=== PATIENT | male | born 1980 | race African-American/Black ===

== ENCOUNTER 2019-05-30 03:12 | Emergency (ER) | payer SELFPAY ==
--- NOTE | 2019-05-30 06:31 | ER Document Report ---
ED GI/ - General Chief Complaint: Abdominal Pain Stated Complaint: ABDOMINAL PAIN/BLADDER PAIN Time Seen by Provider: 05/30/19 06:15 Information source: Patient TRAVEL OUTSIDE OF THE U[place]. IN LAST 30 DAYS: No - HPI Notes: 05/30/19 06:31 Patient complains of lower abdominal pain and distention for the last couple days after Blanca catheter removed. Patient was seen and operated on up in [facility] approximately 4 days ago for inguinal hernia repair. He insisted on leaving there approximately 3 days ago and had a Blanca catheter removed at that time. Patient was seen here approximately 2 days ago and had a work-up at that time which was negative including a negative CT scan of the abdomen. Subsequently patient has had increased urinary distention in decreased ability to urinate. Patient has no other complaints at this time. No nausea or vomiting or diarrhea. No chest pain or shortness of breath. Patient is here with a woman. No rashes. - Related Data Allergies/Adverse Reactions: No Known Allergies Allergy (Unverified 05/30/19 05:10) Past Medical History - Social History Smoking Status: Current Every Day Smoker Frequency of alcohol use: Occasional Family History: Reviewed & Not Pertinent Patient has suicidal ideation: No Patient has homicidal ideation: No Past Surgical History: Reports: Hx Herniorrhaphy - Left indirect inguinal hernia - Immunizations Immunizations up to date: Yes Hx Diphtheria, Pertussis, Tetanus Vaccination: Yes Review of Systems - Review of Systems Constitutional: denies: Chills, Fever Cardiovascular: denies: Chest pain, Heart racing -: Yes All other systems reviewed and negative Physical Exam - Vital signs Vitals: Temp Pulse BP Pulse Ox 98.0 F 93 164/102 H 99 05/30/19 05:05 05/30/19 05:05 05/30/19 05:05 05/30/19 05:05 Interpretation: Normal - General General appearance: Appears well, Alert - HEENT Head: Normocephalic, Atraumatic Eyes: Normal Pupils: PERRL - Respiratory Respiratory status: No respiratory distress Chest status: Nontender Breath sounds: Normal Chest palpation: Normal - Cardiovascular Rhythm: Regular Heart sounds: Normal auscultation Murmur: No - Abdominal Inspection: Healed incision Distension: Distended Bowel sounds: Normal Tenderness: Tender. No: Guarding, Rebound Notes: Enlarged bladder. No CVA tenderness. No rebound. No guarding. - Back Back: Normal, Nontender - Extremities General upper extremity: Normal inspection, Nontender, Normal color, Normal ROM, Normal temperature General lower extremity: Normal inspection, Nontender, Normal color, Normal ROM, Normal temperature, Normal weight bearing. No: Stew's sign - Neurological Neuro grossly intact: Yes Cognition: Normal Orientation: AAOx4 [place] Coma Scale Eye Opening: Spontaneous Melinda Coma Scale Verbal: Oriented Melinda Coma Scale Motor: Obeys Commands [place] Coma Scale Total: 15 Speech: Normal Motor strength normal: LUE, RUE, LLE, RLE Sensory: Normal - Psychological Associated symptoms: Normal affect, Normal mood - Skin Skin Temperature: Warm Skin Moisture: Dry Skin Color: Normal Course - Re-evaluation Re-evalutation: 05/30/19 06:38 Blanca catheter placed. 05/30/19 10:06 Patient has had approximately 250 cc out to Blanca without improvement of symptoms. Labs reviewed. CT abdomen pelvis per radiology shows ileus, no acute disease. Patient is declining admission at this time. He is being rude to staff. He states that this is nothing like [place] which is where he is from. He is signing out AGAINST MEDICAL ADVICE. I believe he has capacity to do so. I have told him to come back at once if worse or new symptoms or if he changes his mind and agrees to admission. He tells me he wants to go out and eat pizza and get a soda. I encouraged him not to do this at this time. Patient is stable. - Vital Signs Vital signs: Temp Pulse Resp BP Pulse Ox 98.2 F 88 18 138/92 H 99 05/30/19 08:00 05/30/19 08:00 05/30/19 08:00 05/30/19 08:00 05/30/19 08:00 - Laboratory Result Diagrams: 05/30/19 08:05 05/30/19 08:05 Laboratory results interpreted by me: 05/30/19 05/30/19 07:25 08:05 MCH 26.6 L RDW 14.5 H Urine Protein 30 H Urine Ketones TRACE H Urine Blood SMALL H Urine Urobilinogen 4.0 H Discharge - Discharge Clinical Impression: Non-compliance Abdominal pain Qualifiers: Abdominal location: unspecified location Qualified Code(s): R10.9 - Unspecified abdominal pain Hypertension Qualifiers: Hypertension type: unspecified Qualified Code(s): I10 - Essential (primary) hypertension Disposition: AGAINST MEDICAL ADVICE
--- NOTE | 2019-05-30 07:39 | RADIOLOGY REPORT (SQ) ---
EXAM DESCRIPTION: X-ray abdomen 1 view CLINICAL DATA: 39-year-old male with abdominal pain. History of hernia repair four days ago and no bowel movement since with difficulty urinating TECHNICAL DATA: A single AP supine x-ray of the abdomen was performed on 05/30/2019 at 5:55 AM. Comparison: CT abdomen and pelvis performed on 05/28/2019. FINDINGS: The bowel gas pattern is nonspecific and nonobstructive. There is mild to moderate fecal residue scattered throughout the colon. There are postsurgical changes consistent with hernia repair projecting over the left lower quadrant. No pathologic abdominal or pelvic calcifications are identified. No abnormal air collections are identified. No focal soft tissue abnormalities are seen. No acute osseous abnormalities are identified. There is a hypoplastic right 12th rib. IMPRESSION: Nonspecific nonobstructive bowel gas pattern. There is mild to moderate fecal residue scattered throughout the colon. Postsurgical changes consistent with hernia repair in the left lower quadrant.
[2019-05-30 07:58] LABS: URINE AMPHETAMINES SCREEN NEGATIVE; URINE BARBITURATES SCREEN NEGATIVE; URINE BENZODIAZEPINES SCREEN NEGATIVE; URINE COCAINE SCREEN NEGATIVE; URINE MARIJUANA (THC) SCREEN NEGATIVE; URINE METHADONE SCREEN NEGATIVE; URINE PHENCYCLIDINE SCREEN NEGATIVE
[2019-05-30 08:16] LABS: APPEARANCE,URINE CLEAR; BILIRUBIN,URINE NEGATIVE (NEGATIVE); COLOR,URINE YELLOW; GLUCOSE, URINE NEGATIVE (NEGATIVE); KETONES,URINE TRACE mg/dL (NEGATIVE); LEUKOCYTE ESTERASE,URINE NEGATIVE (NEGATIVE); NITRITE,URINE NEGATIVE (NEGATIVE); PROTEIN,URINE 30 mg/dL (NEGATIVE)
[2019-05-30 08:22] LABS: ABSOLUTE BASOPHILS # (AUTO) 0.1 10^3/uL (0.0-0.2); ABSOLUTE EOSINOPHILS # (AUTO) 0.3 10^3/uL (0.0-0.6); ABSOLUTE LYMPHOCYTES (AUTO) 1.8 10^3/uL (0.5-4.7); ABSOLUTE MONOCYTES (AUTO) 0.7 10^3/uL (0.1-1.4); ABSOLUTE NEUT (AUTO) 6.1 10^3/uL (1.7-8.2); BASOPHILS % (AUTO) 1.1 % (0-2); HEMATOCRIT 41.6 % (37.9-51.0); HEMOGLOBIN 13.5 g/dL (13.5-17.0); LYMPHOCYTES % (AUTO) 20.4 % (13-45); MEAN CORPUSCULAR HEMOGLOBIN 26.6 pg (27.0-33.4); MEAN CORPUSCULAR HGB CONC 32.6 g/dL (32.0-36.0); MEAN CORPUSCULAR VOLUME 82 fl (80-97); MONOCYTES % (AUTO) 7.7 % (3-13); PLATELET COUNT 263 10^3/uL (150-450); RED BLOOD COUNT 5.09 10^6/uL (4.35-5.55); RED CELL DISTRIBUTION WIDTH 14.5 % (11.5-14.0); SEGMENTED NEUTROPHILS % (AUTO) 67.8 % (42-78); TOTAL CELLS COUNTED % (AUTO) 100 %
[2019-05-30 08:41] LABS: ALBUMIN 4.1 g/dL (3.5-5.0); ALKALINE PHOSPHATASE 68 U/L (38-126); ANION GAP 7 (5-19); ASPARTATE AMINO TRANSFERASE 35 U/L (17-59); BILIRUBIN,DIRECT 0.1 mg/dL (0.0-0.4); BILIRUBIN,TOTAL 0.6 mg/dL (0.2-1.3); BLOOD UREA NITROGEN 16 mg/dL (7-20); CALCIUM 9.6 mg/dL (8.4-10.2); CARBON DIOXIDE 27 mmol/L (22-30); CHLORIDE 105 mmol/L (98-107); GLUCOSE 93 mg/dL (75-110); POTASSIUM 4.9 mmol/L (3.6-5.0); TOTAL PROTEIN 7.6 g/dL (6.3-8.2)
--- NOTE | 2019-05-30 08:43 | RADIOLOGY REPORT (SQ) ---
EXAM DESCRIPTION: CT ABD/PELVIS NO ORAL OR IV COMPLETED DATE/TIME: 05/30/2019 8:00 am REASON FOR STUDY: abd pain COMPARISON: 05/28/2019 TECHNIQUE: CT scan of the abdomen and pelvis performed without intravenous or oral contrast. Images reviewed with lung, soft tissue, and bone windows. Reconstructed coronal and sagittal MPR images revi ewed. All images stored on PACS. All CT scanners at this facility use dose modulation, iterative reconstruction, and/or weight based d osing when appropriate to reduce radiation dose to as low as reasonably achievable (ALARA). [facility]: Dose Right [facility]: CareDose [facility]: Dose Right [facility]: Teradose 4D [facility]: Hashtrack RADIATION DOSE: CT Rad equipment meets quality standard of care and radiation dose reduction techniq ues were employed. CTDIvol: 16.6 mGy. DLP: 936 mGy-cm.mGy. LIMITATIONS: None. FINDINGS: LOWER CHEST: No significant findings. No nodules or infiltrates. NON-CONTRASTED LIVER, SPLEEN, ADRENALS: Evaluation limited by lack of IV contrast. No identified sign ificant masses. PANCREAS: No masses. No peripancreatic inflammatory changes. GALLBLADDER: No identified stones by CT criteria. No inflammatory changes to suggest cholecystitis. RIGHT KIDNEY AND URETER: No suspicious masses. Assessment limited by lack of IV contrast. No signif icant calcifications. No hydronephrosis or hydroureter. LEFT KIDNEY AND URETER: No suspicious masses. Assessment limited by lack of IV contrast. No signifi cant calcifications. No hydronephrosis or hydroureter. AORTA AND RETROPERITONEUM: No aneurysm. No retroperitoneal masses or adenopathy. BOWEL AND PERITONEAL CAVITY: Mildly dilated loops of small bowel in the mid abdomen. No clear transi tion. Distal small bowel is decompressed. Gas and fecal material in the colon. No free air. No ob vious masses or inflammatory changes. No free fluid. APPENDIX: Normal. PELVIS, BLADDER, AND ABDOMINAL WALL:Expected postoperative changes from left lower quadrant anterior abdominal wall hernia repair. Blanca catheter in urinary bladder. BONES: No significant findings. OTHER: No other significant finding. IMPRESSION: Expected postoperative changes in the pelvis. Mildly dilated loops of small bowel most likely ileus although cannot entirely exclude partial small bowel obstruction. COMMENT: Quality ID # [id number]: Final reports with documentation of one or more dose reduction techniques (e.g., Automated exposure control, adjustment of the mA and/or kV according to patient size, use of iterative reconstruction technique) TECHNICAL DOCUMENTATION: JOB ID: [id number] [employer]- All Rights Reserved Reading location - IP/workstation name: [email or web address]
[2019-05-30 10:17] VITALS: BP 138/88
== END 2019-05-30 10:15 | disposition left against medical advice (07) ==
LOC: ER 03:12
DX: R10.30 Lower abdominal pain, unspecified (principal); R14.0 Abdominal distension (gaseous); N32.89 Other specified disorders of bladder; I10 Essential (primary) hypertension; F17.200 Nicotine dependence, unspecified, uncomplicated; Z98.890 Other specified postprocedural states; Z53.20 Procedure and treatment not carried out because of patient's decision for unspecified reasons
CPT/HCPCS: 36415; 51702; 74018; 74176; 80053; 80307; 81001; 83690; 84484; 85025; 99284

== ENCOUNTER 2019-05-30 19:01 | Emergency (ER) | payer SELFPAY ==
--- NOTE | 2019-05-30 19:51 | ER Document Report ---
ED Medical Screen (RME) - General Chief Complaint: Post Surgical Pain Stated Complaint: POST OP CHECK Time Seen by Provider: 05/30/19 19:42 Mode of Arrival: Ambulatory Information source: Patient Notes: 39-year-old male with recent inguinal hernia repair in [place] on May 27 presents emergency department for the second time today with complaints of abdominal pain. Reports he was here earlier today was about to be admitted but he had to leave to go picker his kids. He also reported that everybody was rude. He reports he laid there all the time he was here without any pain me dication AND was hurting really bad. Patient reports he went home and he vomited 1 time. He is unsure of fever. Reports he has not had a bowel movement since he had the surgery. I have greeted and performed a rapid initial assessment of this patient. A comprehensive ED assessment and evaluation of the patient, analysis of test results and completion of the medical decision making process will be conducted by additional ED providers. TRAVEL OUTSIDE OF THE [place] IN LAST 30 DAYS: No - Related Data Allergies/Adverse Reactions: No Known Allergies Allergy (Unverified 05/30/19 05:10) Past Medical History Past Surgical History: Reports: Hx Herniorrhaphy - Left indirect inguinal hernia - Immunizations Immunizations up to date: Yes Hx Diphtheria, Pertussis, Tetanus Vaccination: Yes Physical Exam - Vital signs Vitals: Temp Pulse Resp BP Pulse Ox 98.0 F 102 H 20 145/86 H 97 05/30/19 19:04 05/30/19 19:04 05/30/19 19:04 05/30/19 19:04 05/30/19 19:04 Course - Vital Signs Vital signs: Temp Pulse Resp BP Pulse Ox 98.0 F 102 H 20 145/86 H 97 05/30/19 19:04 05/30/19 19:04 05/30/19 19:04 05/30/19 19:04 05/30/19 19:04
[2019-05-30 20:42] LABS: ABSOLUTE EOSINOPHILS # (AUTO) 0.3 10^3/uL (0.0-0.6); ABSOLUTE LYMPHOCYTES (AUTO) 1.7 10^3/uL (0.5-4.7); ABSOLUTE MONOCYTES (AUTO) 0.7 10^3/uL (0.1-1.4); ABSOLUTE NEUT (AUTO) 5.7 10^3/uL (1.7-8.2); BASOPHILS % (AUTO) 0.4 % (0-2); EOSINOPHILS % (AUTO) 3.5 % (0-6); HEMATOCRIT 41.8 % (37.9-51.0); HEMOGLOBIN 13.6 g/dL (13.5-17.0); LYMPHOCYTES % (AUTO) 19.7 % (13-45); MEAN CORPUSCULAR HEMOGLOBIN 26.8 pg (27.0-33.4); MEAN CORPUSCULAR HGB CONC 32.6 g/dL (32.0-36.0); MEAN CORPUSCULAR VOLUME 82 fl (80-97); MONOCYTES % (AUTO) 7.8 % (3-13); PLATELET COUNT 266 10^3/uL (150-450); RED BLOOD COUNT 5.08 10^6/uL (4.35-5.55); RED CELL DISTRIBUTION WIDTH 14.3 % (11.5-14.0); SEGMENTED NEUTROPHILS % (AUTO) 68.6 % (42-78); TOTAL CELLS COUNTED % (AUTO) 100 %; WHITE BLOOD COUNT 8.4 10^3/uL (4.0-10.5)
[2019-05-30 21:03] LABS: ALBUMIN 4.2 g/dL (3.5-5.0); ALKALINE PHOSPHATASE 67 U/L (38-126); ANION GAP 9 (5-19); ASPARTATE AMINO TRANSFERASE 33 U/L (17-59); BILIRUBIN,DIRECT 0.1 mg/dL (0.0-0.4); BILIRUBIN,TOTAL 0.6 mg/dL (0.2-1.3); BLOOD UREA NITROGEN 18 mg/dL (7-20); CALCIUM 9.6 mg/dL (8.4-10.2); CARBON DIOXIDE 28 mmol/L (22-30); CHLORIDE 103 mmol/L (98-107); GLUCOSE 88 mg/dL (75-110); POTASSIUM 4.7 mmol/L (3.6-5.0); TOTAL PROTEIN 7.8 g/dL (6.3-8.2)
[2019-05-30 22:29] LABS: APPEARANCE,URINE CLEAR; BILIRUBIN,URINE NEGATIVE (NEGATIVE); COLOR,URINE YELLOW; GLUCOSE, URINE NEGATIVE (NEGATIVE); KETONES,URINE NEGATIVE (NEGATIVE); LEUKOCYTE ESTERASE,URINE NEGATIVE (NEGATIVE); NITRITE,URINE NEGATIVE (NEGATIVE); PROTEIN,URINE NEGATIVE (NEGATIVE); URINE SPECIFIC GRAVITY 1.023
--- NOTE | 2019-05-30 23:06 | ER Document Report ---
ED General - General Mode of Arrival: Ambulatory TRAVEL OUTSIDE OF THE [place] IN LAST 30 DAYS: No <ARAM CARVALHO - Last Filed: 05/31/19 03:54> <LOW RUFF - Last Filed: 05/31/19 05:20> - General Chief Complaint: Abdominal Pain Stated Complaint: POST OP CHECK Time Seen by Provider: 05/30/19 19:42 - HPI Notes: 39M staff initially seeing him now POD#3 s/p inguinal hernia repair 05/27/19 in [place] presents to our ED for 2nd time today for abd pn. on first presentation dispo was 2b adm, "had 2 p/u his kids. Patient reports he went home and he vomited 1 time. He is unsure of fever. Reports he has not had a bowel movement since he had the surgery. (ARAM CARVALHO) - Related Data Allergies/Adverse Reactions: No Known Allergies Allergy (Unverified 05/30/19 05:10) Past Medical History - General Information source: Patient - Social History Smoking Status: Current Every Day Smoker Family History: Reviewed & Not Pertinent Patient has suicidal ideation: No Patient has homicidal ideation: No Past Surgical History: Reports: Hx Herniorrhaphy - Left indirect inguinal hernia - Immunizations Immunizations up to date: Yes Hx Diphtheria, Pertussis, Tetanus Vaccination: Yes <ARAM CARVALHO - Last Filed: 05/31/19 03:54> Physical Exam - Vital signs Vitals: Temp Pulse Resp BP Pulse Ox 98.0 F 102 H 20 145/86 H 97 05/30/19 19:04 05/30/19 19:04 05/30/19 19:04 05/30/19 19:04 05/30/19 19:04 Course - Laboratory Result Diagrams: 05/30/19 20:16 05/30/19 20:16 <AARM CARVALHO - Last Filed: 05/31/19 03:54> - Laboratory Result Diagrams: 05/30/19 20:16 05/30/19 20:16 <LOW RUFF - Last Filed: 05/31/19 05:20> - Vital Signs Vital signs: Temp Pulse Resp BP Pulse Ox 98.0 F 102 H 20 145/86 H 97 05/30/19 19:04 05/30/19 19:04 05/30/19 19:04 05/30/19 19:04 05/30/19 19:04 - Laboratory Laboratory results interpreted by me: 05/30/19 05/30/19 05/30/19 20:16 20:16 22:10 MCH 26.8 L RDW 14.3 H Creatinine 1.61 H Est GFR ( Amer) 59 L Est GFR (MDRD) Non-Af 49 L Urine Urobilinogen 2.0 H Discharge <ARAM CARVALHO A - Last Filed: 05/31/19 03:54> <LOW RUFF - Last Filed: 05/31/19 05:20> - Discharge Clinical Impression: Ileus, postoperative, Scrotal swelling, Epididymitis Condition: Good Disposition: HOME, SELF-CARE Instructions: Abdominal Pain ([facility]), Epididymitis ([facility]) Additional Instructions: Today in the emergency department I reviewed your CT scan from earlier which showed some dilation in your bowel consistent with ileus after surgery which is a slow-moving transit of your bowel movements. If you start to have vomiting are not passing gas and or still not having bowel movements despite taking the MiraLAX that would be concerning for a bowel obstruction for which she should return. Otherwise impending your scrotal ultrasound results of these are negative then continue to stay hydrated and follow-up with your surgeon postop appointment. Please take MiraLAX not the Colace that was prescribed earlier, to keep your bowel movements soft pudding like consistency you can increase up to 2 or 3 or 4 times a day as needed to keep them soft and regular. Prescriptions: Oxycodone HCl [Oxy-Ir 5 mg Tablet] 5 mg PO Q4HP PRN 3 Days #18 tab PRN Reason: Doxycycline Monohydrate 100 mg PO BID #20 capsule Polyethylene Glycol 3350 [Miralax Powder 17 gm/Packet] 1 packet PO DAILY 7 Days #1 pkg Acetaminophen [Pain & Fever] 650 mg PO Q6 3 Days #30 tablet
[2019-05-31] MEDS ORDERED: OXYCODONE HCL IR 5 MG TABLET PO ONE (02:50)
[2019-05-31] MEDS ORDERED: ONDANSETRON ODT 4 MG TAB (6 TAB/ER DISP) PO PRN (02:50)
[2019-05-31] MEDS ORDERED: RINGERS SOLUTION,LACTATED 1,000 ML IV ONE (02:53)
[2019-05-31] MEDS ORDERED: ONDANSETRON HCL INJ/PF 4 MG/2 ML SDV IV PRN (03:06)
[2019-05-31] MEDS: HYDROMORPHONE HCL INJ/PF 2 MG/ML AMPULE IV PRN ×2 (03:25→06:40)
--- NOTE | 2019-05-31 04:36 | RADIOLOGY REPORT (SQ) ---
EXAM DESCRIPTION: US SCROTUM COMPLETED DATE/TME: 05/31/2019 02:51 CLINICAL HISTORY: 39 years, Male, L direct inguinal hernia repair-> swell/pain COMPARISON: None. TECHNIQUE: Transverse and longitudinal sonographic images of the testes LIMITATIONS: None. FINDINGS: The right testes measures 5.2 x 3.9 x 3.2 cm. Left testicle measures 5.1 x 4.1 x 3.1 cm. Doppler and spectral analysis shows normal flow to each testicle. Negative for intratesticular mass. There is a complex heterogeneous area adjacent to the left testes which may be associated with the left epididymis measuring 6 x 5 x 2 cm.. There are small bilateral hydroceles. Diffuse scrotal wall thickening and edema. Additional imaging in the region of the patient's prior hernia repair show no abnormal fluid collections. IMPRESSION: Complex, heterogeneous area adjacent to the left testes possibly associated with the left epididymis/left epididymitis. Small bilateral hydroceles are also noted. No sonographic evidence for torsion copyright 2010 [employer]- All Rights Reserved
[2019-05-31] MEDS ORDERED: CEFTRIAXONE INJ 250 MG VIAL IM ONE (04:45)
[2019-05-31] MEDS ORDERED: AZITHROMYCIN 250 MG TABLET PO ONE (04:45)
--- NOTE | 2019-05-31 05:14 | ER Document Report ---
Doctor's Note Notes: 05/31/19 05:12 I assumed care of this patient from Dr. Medina at the end of his shift pending ultrasound results, and disposition. Please see her note for full history and physical. Briefly, this is a 39-year-old gentleman who presents today with abdominal pain. Patient is status post hernia repair. He was seen earlier yesterday and had a CT scan that did not show any obvious evidence of obstruction. Initial evaluation so far has been unremarkable. Patient evaluated. He is doing well. Ultrasound shows possible epididymitis. Given that his swellings on that left side, I will go ahead and treat for epididymitis. Will cover with Rocephin and Zithromax now and send him home on doxycycline. Patient is tolerating p.o. well. He is stable for discharge as per original plan by Dr. Medina. 05/31/19 05:21 Patient states he does not want prescription for Percocet. Consequently, I will discontinue prescription written by Dr. Medina for Percocet.
[2019-05-31] MEDS ORDERED: LIDOCAINE 1% INJ-PF (10 MG/ML) 30 ML SDV INJ ONE (06:29)
[2019-05-31 06:58] VITALS: BP 133/83
== END 2019-05-31 07:09 | disposition home or self-care (01) ==
LOC: ER 19:01
DX: K56.7 Ileus, unspecified (principal); N45.1 Epididymitis; N50.89 Other specified disorders of the male genital organs; Z98.890 Other specified postprocedural states; F17.200 Nicotine dependence, unspecified, uncomplicated
CPT/HCPCS: 99284; 96372; 96361; 96374; 96375; 36415; 87070; 81001; 76870; 93976; J3490; J1170; J2405; J7120; J0696